=== PATIENT | female | born 1985 | race Caucasian/White ===

== ENCOUNTER 2020-09-11 11:35 | Emergency (ER) | payer MEDICAID ==
[~2020-09-11] VITALS: Ht 165.1 cm; Wt 61.4 kg
[2020-09-11 11:42] VITALS: BP 111/67; Ht 165.1 cm; Wt 61.4 kg
[2020-09-11] MEDS ORDERED: PROZAC40 MG PO (11:45)
[2020-09-11 14:16] LABS: SARS-CoV-2 ANTIGEN NEGATIVE- SARS-COV-2 (NEGATIVE)
[2020-09-11] MEDS ORDERED: ZPAK PO (15:46)
[2020-09-11] MEDS ORDERED: PROMETHAZINE W473 ML PO (15:46)
== END 2020-09-11 16:15 | disposition home or self-care (01) ==
LOC: D.ER 11:35
PROVIDERS: Emergency Medicine
DX: J06.9 Acute upper respiratory infection, unspecified (principal); Z72.0 Tobacco use